=== PATIENT | female | born 1995 | race African-American/Black ===

== ENCOUNTER 2021-01-29 08:22 | Emergency (ER) | payer MEDICAID ==
[~2021-01-29] VITALS: Ht 157.5 cm; Wt 113.4 kg
[2021-01-29 08:29] VITALS: BP 148/109
--- NOTE | 2021-01-29 08:34 | NUR ---
Patient ambulated to bed 3. RN evaluating patient at bedside.
[2021-01-29] MEDS ORDERED: predniSONE 20 MG TAB PO ONE (08:35)
[2021-01-29] MEDS ORDERED: ALBUTEROL SULFATE/IPRATROPIU 3 ML SOL IH ONE (08:35)
[2021-01-29] MEDS ORDERED: ALBUTEROL 0.083% 2.5 MG/3 ML NEBU INH ONE (08:35)
--- NOTE | 2021-01-29 08:36 | NUR ---
Dr. Vallecillo is evaluating the patient at bedside.
--- NOTE | 2021-01-29 08:40 | NUR ---
25 Y/O FEMALE BIB SELF C/O COUGH, SOB, RIGHT CHEST PAIN & RIGHT UPPER BACK PAIN , NASAL CONGESTION X 3 DAYS. SPO2 100% RA, RR 21, BREATHING EVEN AND UNLABORED, SYMMETRICAL CHEST EXPANSION, NO APPARENT ACCESSORY MUSCLE USE. NON-PRODUCTIVE COUGH. PT STATES NEBULIZER PRN AND ALBUTEROL PRN NOT EFFECTIVE. PAIN 10/10 CONTINUOUS. STATES TOOK 2 MOTRIN PRIOR TO HOSPITAL ARRIVAL TO ADDRESS PAIN; SOMEHWAT EFFECTIVE. DENIES NAUSEA/VOMITING, FEVER/CHILLS. AO4, SKIN WARM AND DRY. BED IN LOWEST POSITION, LOCKED, X1 SIDERAIL UP. PMHX -ASTHMA NKA
--- NOTE | 2021-01-29 08:42 | NUR ---
Breathing treatment administered at bedside by respiratory therapist.
[2021-01-29] MEDS ORDERED: KETOROLAC 60 MG/2 ML VIAL IM ONE (08:45)
[2021-01-29] MEDS ORDERED: PRON INH (08:53)
[2021-01-29] MEDS ORDERED: PRED20TA5 PO (08:53)
[2021-01-29] MEDS ORDERED: IBUP-2213 PO (08:53)
[2021-01-29 09:08] VITALS: BP 148/109
--- NOTE | 2021-01-29 09:08 | NUR ---
Patient discharged with v/s stable. Written and verbal after care instructions ABOUT ASTHMA given and explained. Patient alert, oriented and verbalized understanding of instructions. Ambulatory with steady gait. All questions addressed prior to discharge. ID band removed. Patient advised to follow up with PMD. Rx of IBUPROFEN, ALBUTEROL, AND PREDNISONE given. Patient educated on indication of medication including possible reaction and side effects. Opportunity to ask questions provided and answered.
== END 2021-01-29 09:08 | disposition home or self-care (01) ==
LOC: MED 08:22
DX: J45.901 Unspecified asthma with (acute) exacerbation (principal); F12.90 Cannabis use, unspecified, uncomplicated; Z79.899 Other long term (current) drug therapy; Z90.49 Acquired absence of other specified parts of digestive tract
CPT/HCPCS: 94640; 96372; 99283; J1885; J7512; J7613

== ENCOUNTER 2021-05-20 06:27 | Emergency (ER) | payer MEDICAID ==
[~2021-05-20] VITALS: Ht 157.5 cm; Wt 111.6 kg
[~2021-05-20 06:27] MED LIST: IBUP-2213 PO; PRED20TA5 PO; PRON INH
[2021-05-20 06:30] VITALS: BP 131/78
--- NOTE | 2021-05-20 06:30 | NUR ---
PT AMBULATED TO BED #7
--- NOTE | 2021-05-20 06:53 | NUR ---
26 Y/O FEMALE PATIENT PRESENTS TO ED WITH LEFT ARM NUMBNESS. PT STATES "I FEEL NUMBNESS AND TINGLING BUT NO PAIN, IN MY LEFT ARM." PT IS ABLE TO DO ROM ON LEFT ARM WITHOUT ANY DIFFICULTIES. DENIES N/V/D; SKIN IS PINK/WARM/DRY; AAOX4 WITH EVEN AND STEADY GAIT; LUNGS CLEAR BL; HR EVEN AND REGULAR; PT DENIES ANY FEVER, CP, SOB, OR COUGH AT THIS TIME; PATIENT STATES PAIN OF 0/10 AT THIS TIME; VSS; PATIENT POSITIONED FOR COMFORT; HOB ELEVATED; BEDRAILS UP X2; BED DOWN. ER MD MADE AWARE OF PT STATUS. BULL PMH: DENIES LMP: 04/27/21
[2021-05-20] MEDS ORDERED: NAPR-1704 PO (06:56)
--- NOTE | 2021-05-20 07:05 | NUR ---
Patient discharged with v/s stable. Written and verbal after care instructions given and explained. Patient verbalized understanding. Ambulatory with steady gait. All questions addressed prior to discharge. Advised to follow up with PMD.
[2021-05-20 07:06] VITALS: BP 131/78
== END 2021-05-20 07:05 | disposition home or self-care (01) ==
LOC: MED 06:27
DX: M62.830 Muscle spasm of back (principal); R03.0 Elevated blood-pressure reading, without diagnosis of hypertension; J45.909 Unspecified asthma, uncomplicated; F12.90 Cannabis use, unspecified, uncomplicated; Z90.49 Acquired absence of other specified parts of digestive tract; Z79.899 Other long term (current) drug therapy
CPT/HCPCS: 99282